=== PATIENT | male | born 1965 | race Caucasian/White ===

== ENCOUNTER 2018-10-16 11:42 | Emergency (ER) | payer BC ==
[2018-10-16] MEDS ORDERED: Ibuprofen 800 MG TAB ONE (12:39)
--- NOTE | 2018-10-16 13:16 | RAD ---
EXAM: CHEST ONE VIEW LEFT RIBS TWO VIEWS: History: 53-year-old male with history of left chest injury following a fall and left lateral rib pain. FINDINGS: Nondisplaced fracture noted involving the left 8th lateral rib with some blunting of the left costoph renic angle, possibly a small pleural effusion. No pneumothorax. Heart size is normal. IMPRESSION: Nondisplaced left 8th rib fracture with probable small left pleural effusion without pneumothorax. POS: C
== END 2018-10-16 12:45 | disposition home or self-care (01) ==
LOC: SCSER 11:42
DX: S22.32XA Fracture of one rib, left side, initial encounter for closed fracture (principal); W19.XXXA Unspecified fall, initial encounter
CPT/HCPCS: 94799